=== PATIENT | female | born 1960 | race Caucasian/White ===

== ENCOUNTER → 2016-11-10 | Outpatient (CLI) | payer OTHER ==
[~2016-11-10] MED LIST: CALC-354 PO; METHPOW7 PO; METO-217 PO; METO25TA3 PO; MISCCAP80 PO
[2016-11-10 10:51] LABS: BASO % 0.5 %; BASO ABS # 0.03 K/uL (0-0.2); COMPLETE YES; EOS % 1.3 %; HEMATOCRIT 40.7 % (37-47); IG% 0.2 %; LYMPH % 29.7 %; LYMPH ABS # 1.84 K/uL (1.2-3.4); MEAN CELL VOLUME 89.3 fL (80-100); MEAN CORPUSCULAR HEMOGLOBIN 30.5 pg (25-34); MEAN CORPUSCULAR HGB CONC 34.2 g/dl (32-36); MEAN PLATELET VOLUME 9.1 fL (7.4-10.4); MONO % 8.6 %; NEUT % 59.7 %; PLATELET COUNT 280 K/uL (130-400); RED BLOOD COUNT 4.56 M/uL (4.2-5.4); WHITE BLOOD COUNT 6.19 K/uL (4.8-10.8)
[2016-11-10 11:02] LABS: ALT/SGPT 24 U/L (12-78); BLOOD UREA NITROGEN 11 mg/dl (7-18); BUN/CREATININE RATIO 15.3 (10-20); CALCIUM 9.3 mg/dl (8.5-10.1); CARBON DIOXIDE 30 mmol/L (21-32); CHLORIDE 106 mmol/L (98-107); CHOLESTEROL 164 mg/dl (0-200); CREATININE 0.74 mg/dl (0.60-1.20); GLUCOSE 84 mg/dl (70-99); MAGNESIUM 2.2 mg/dl (1.8-2.4); POTASSIUM 4.1 mmol/L (3.5-5.1); SODIUM 142 mmol/L (136-145); TRIGLYCERIDES 125 mg/dl (0-150); VERY LOW DENSITY LIPOPROT CALC 25 mg/dl
[2016-11-10 11:13] LABS: ALKALINE PHOSPHATASE 63 U/L (45-117); AST/SGOT 24 U/L (15-37); CHOLESTEROL/HDL RATIO 3.3; HDL CHOLESTEROL 50 mg/dl; LDL CHOLESTEROL CALCULATED 89 mg/dl
== END | disposition home or self-care (01) ==
LOC: C.LABBC 08:46
PROVIDERS: ATTEND Family Medicine
DX: Z79.899 Other long term (current) drug therapy (principal); R00.0 Tachycardia, unspecified; I10 Essential (primary) hypertension; E55.9 Vitamin D deficiency, unspecified

== ENCOUNTER → 2017-03-19 | Outpatient (CLI) | payer OTHER ==
--- NOTE | 2017-03-19 15:53 | MAMMOGRAPHY REPORT ---
BILATERAL DIGITAL SCREENING MAMMOGRAM TOMOSYNTHESIS WITH CAD: 03/19/2017 TECHNIQUE: Breast tomosynthesis in addition to standard 2D mammography was performed. Current study was also evaluated with a Computer Aided Detection (CAD) system. COMPARISON: Comparison is made to exams dated: 02/19/2016 mammogram, 07/12/2013 mammogram, 02/24/2012 mammogram, and 02/11/2011 mammogram. BREAST COMPOSITION: The tissue of both breasts is heterogeneously dense, which may obscure small ma sses. FINDINGS: No suspicious masses, calcifications, or areas of architectural distortion are noted in e ither breast. There has been no significant interval change compared to prior exams. IMPRESSION: ACR BI-RADS CATEGORY 1: NEGATIVE There is no mammographic evidence of malignancy. A 1 year screening mammogram is recommended. The p atient will receive written notification of the results. Approximately 10% of breast cancers are not detected with mammography. A negative mammographic repor t should not delay biopsy if a clinically suggestive mass is present. Elisa Louis M.D. ah/:03/19/2017 14:04:28 Pharmacovigilance Safety Expert: Jennifer HUTTON(R)(M), [facility] letter sent: Normal 1/2 BI-RADS Code: ACR BI-RADS Category 1: Negative
== END | disposition home or self-care (01) ==
LOC: C.MAMM 13:37
PROVIDERS: ATTEND Obstetrics & Gynecology
DX: Z12.31 Encounter for screening mammogram for malignant neoplasm of breast (principal)

== ENCOUNTER 2020-04-29 15:00 | Observation (INO) ==
[2020-04-29] MEDS ORDERED: fentaNYL citrate 100 MCG/2 ML VIAL IV STA (15:13)
[2020-04-29] MEDS ORDERED: ONDANSETRON INJ 2 MG/ML 2 ML VIAL IV STA (15:13)
[2020-04-29] MEDS ORDERED: ONDANSETRON INJ 2 MG/ML 2 ML VIAL ONE ×2 (15:13→20:15)
[2020-04-29] MEDS ORDERED: SODIUM CHLORIDE 0.9% 1000ML 500 ML IV ONE (15:14)
[2020-04-29] MEDS ORDERED: fentaNYL citrate 100 MCG/2 ML VIAL ONE ×3 (15:14→19:04)
[2020-04-29 15:21] LABS: Basophils # (auto) 0.02 K/uL (0-0.2); Basophils % (auto) 0.3 %; Eosinophils # (auto) 0.17 K/uL (0-0.5); Eosinophils % (auto) 2.1 %; Hematocrit (blood only) 41.7 % (37-47); Hemoglobin 13.7 g/dL (12.0-16.0); Immature Granulocytes # (auto) 0.03 K/uL (0.00-0.02); Immature Granulocytes % (auto) 0.4 %; Lymphocytes # (auto) 2.11 K/uL (1.2-3.4); Lymphocytes % (auto) 26.5 %; Mean Corpuscular Hemoglobin 30.6 pg (25-34); Mean Corpuscular Hgb Conc 32.9 g/dL (32-36); Mean Corpuscular Volume 93.1 fL (80-100); Mean Platelet Volume 9.2 fL (7.4-10.4); Monocytes # (auto) 0.47 K/uL (0.11-0.59); Monocytes % (auto) 5.9 %; Neutrophils # (auto) 5.15 K/uL (1.4-6.5); Neutrophils % (auto) 64.8 %; Platelet Count 301 K/uL (130-400); RDW Coefficient of Variation 12.2 % (11.5-14.5); RDW Standard Deviation 41.1 fL (36.4-46.3); Red Blood Count 4.48 M/uL (4.2-5.4); White Blood Count 7.95 K/uL (4.8-10.8)
[2020-04-29] MEDS ORDERED: LORazepam 0.5 MG/1 ML VIAL IV STA (15:21)
[2020-04-29 15:39] LABS: Albumin Level 4.1 gm/dl (3.4-5.0); BUN Creatinine Ratio 17.1 (10-20); Calcium 9.6 mg/dl (8.5-10.1); Est GFR (African American) 65.8; Est GFR (Non-African American) 56.8; Potassium 3.8 mmol/L (3.5-5.1)
[2020-04-29 15:42] LABS: Albumin Globulin Ratio 1.1 (0.9-2); Bilirubin,Total 0.4 mg/dl (0.2-1); Globulin 3.8 gm/dl (2.5-4.0); Total Protein 7.9 gm/dl (6.4-8.2)
--- NOTE | 2020-04-29 15:51 | XRay Report ---
XR ankle RT min 3V routine CLINICAL HISTORY: Post reduction. Right ankle fracture/dislocation. COMPARISON STUDY: Right ankle 04/21/2020. FINDINGS: Improved anatomic alignment status post reduction of the right ankle trimalleolar fracture/ dislocation. Distal fibula demonstrates up to 4 mm of displacement. There is mild widening of the ank le mortise. Diffuse soft tissue swelling. Overlying splint material obscures fine bony detail. No dis location at this time. IMPRESSION: Improved anatomic alignment status post reduction of the right ankle trimalleolar fractu re with mild widening of the ankle mortise remaining. ACT 112: Negative or not required by law. Electronically signed by: Jack Barnes M.D. 04/29/2020 3:49 PM
--- NOTE | 2020-04-29 16:00 | History & Physical Report ---
Date of Service April 29, 2020 Assessment & Plan (1) Bimalleolar ankle fracture: Her ankle was reduced in the emergency room. This is an unstable fracture that will need operative fixation. She would like to proceed with surgery tonight. I think that is reasonable. She is currently on the operating room schedule for an ORIF of her right ankle this evening. We will likely keep her overnight in the hospital then and discharge her to home tomorrow morning. She understands the risks, benefits, and alternatives to procedures like to proceed. Consents were signed. Present on Admission?: Yes History of Present Illness Chief Complaint: Displaced right bimalleolar ankle fracture Primary Care Provider: Mayda Wong MD Ann-Marie is a pleasant 59-year-old female who was walking her dogs earlier today. She stepped awkwardly in a hole and fell to the ground. She sustained a twisting injury to her right ankle. There was a significant deformity. She came to the emergency room and radiographs demonstrated a displaced right bimalleolar ankle fracture with posterior subluxation of the talus. It was reduced in the emergency room. After discussions at bedside, she elected to proceed with an open reduction internal fixation later this evening. She is being admitted to the hospital for the surgical procedure on her ankle as well as an overnight stay. Allergies Allergy/AdvReac Type Severity Reaction Status Date / Time Penicillins Allergy Unknown HIVES Verified 11/16/19 15:56 Home Medications Home Medications Medication Instructions Recorded Confirmed Type cholecalciferol (vitamin D3) 50 50 mcg PO DAILY 11/16/19 11/16/19 History mcg (2,000 unit) capsule multivitamin 1 tab PO DAILY 11/16/19 11/16/19 History prednisone 20 mg tablet 20 mg PO DAILY #5 tab 11/16/19 11/16/19 Rx metoprolol succinate 100 mg 50 mg PO Q12H 90 Days #90 tab 01/23/20 Rx tablet,extended release 24 hr Past Med/Surg History Surgical History H/O: hysterectomy Family History Denies family history of Ovarian cancer Prostate cancer Myocardial infarction Breast cancer Colorectal cancer Social History Preferred Language: Ukrainian Communication Ability: Effective Visual Impairment: No Limitations Hearing Ability: Normal marital status: Current Living Situation: Spouse current occupational status: employed Feels Safe at Home: Yes Smoking Status: Never smoker Hx Alcohol Use: Yes Alcohol type: wine Alcohol Intake Frequency: Daily Hx Substance Use: No Childhood Exposure to Second-Hand Smoke: No Dental Care, Regularly: Yes Physical Activity Frequency: Daily Seatbelt Use: always Sunscreen Use: Yes Review of Systems Review of Systems: All systems reviewed & are unremarkable except as noted in HPI & below Physical Exam Constitutional: WD/WN, vitals as above Eyes: PERRL, conjunctivae normal, anicteric sclerae ENMT: external ear and nose normal, oropharynx normal Neck: trachea midline, no thyromegaly Respiratory: normal respiratory effort Cardiovascular: RRR, no murmur, no edema Gastrointestinal (Abdomen): normal bowel sounds, soft, nontender, no hepatosplenomegaly Musculoskeletal: On physical examination of the right ankle, there is a trauma splint in place. She is a little bit of motion of her toes. Sensation is intact. Her right leg is elevated. She has full range of motion of her knee. She has no other tenderness to palpation on her remaining long bones or bony prominences. Psychiatric: A+Ox3, euthymic affect Results & Data Results & Data ([facility]) Vital Signs (Past 12 Hours) Vital Signs Temp Pulse Pulse Resp BP BP Pulse Ox 04/29/20 15:45 86 18 147/77 H 97 04/29/20 15:13 95 04/29/20 15:07 37.1 C 95 H 18 160/103 H 99 Diagnostic Findings X-rays of the right ankle do show a displaced bimalleolar right ankle fracture. There is an oblique fracture of the fibula as well as a medial malleolus fragment. PG Care Time/CCT Total # of Minutes Spent Total Time Spent with Patient: Total time spent is greater than 50% in coordination of care (as documented) at patient's floor/unit and/or counseling patient: Coding Level of Care Code 72054 Initial Inpt Care Lvl 3 Diagnoses Bimalleolar ankle fracture S82.843A
--- NOTE | 2020-04-29 16:06 | XRay Report ---
XR ankle RT 2V CLINICAL HISTORY: dislocated/ ? fracture. Right ankle pain. COMPARISON STUDY: None. FINDINGS: Trimalleolar ankle fracture with posterior dislocation of the talus in relation to the dist al tibia. Diffuse soft tissue swelling. The medial malleolus demonstrating up to 1 cm medial displace ment. IMPRESSION: Trimalleolar right ankle fracture/dislocation. ACT 112: Negative or not required by law. Electronically signed by: Jack Barnes M.D. 04/29/2020 4:05 PM
[2020-04-29 16:15] LABS: Partial Thromboplastin Ratio 0.9; Partial Thromboplastin Time 25.9 Seconds (21.0-31.0); Prothrombin Time 10.2 Seconds (9.0-12.0)
--- NOTE | 2020-04-29 17:13 | XRay Report ---
XR chest 2V PA/lateral HISTORY: Right ankle fracture. pre-op COMPARISON: None. FINDINGS: The lungs are clear. Apparent enlargement of the cardiac silhouette is secondary to the pec tus excavatum deformity. No pleural effusions. No pneumothorax. The trachea is midline and patent. IMPRESSION: No acute process. ACT 112: Negative or not required by law. Electronically signed by: Jack Barnes M.D. 04/29/2020 5:11 PM
[2020-04-29] MEDS ORDERED: CEFAZOLIN 1000MG 1,000 MG/7.5 ML SYR IV SCH (18:00)
--- NOTE | 2020-04-29 18:02 | Anesthesiology Consultation ---
Date of Service April 29, 2020 Assessment & Plan ASA ASA2 Proposed Anesthesia Anesthesia Type: General Regional Regional Laterality: Right Site: Popliteal and Adductor Canal Risk / Benefits Reviewed With: PT / POA / Parent / Guardian, Accepts Plan and Informed Consent Obtained History Surgery Operation Date: 04/29/20 19:00 Proposed Procedures p Open Reduction Internal Fixation Ankle(Right) - Roscoe Randall, DO Height/Weight Height: 5 ft 6 in Weight: 63.9 kg Allergies Allergy/AdvReac Type Severity Reaction Status Date / Time Penicillins Allergy Unknown HIVES Verified 04/29/20 16:12 Medications Home Medications Medication Instructions Recorded Confirmed Last Taken cholecalciferol (vitamin D3) 50 50 mcg PO DAILY 11/16/19 04/29/20 Unknown mcg (2,000 unit) capsule metoprolol succinate 100 mg 50 mg PO Q12H 90 Days #90 tab 01/23/20 04/29/20 Unknown tablet,extended release 24 hr elham [id number]-[id number]-bor 1 tab PO DAILY 04/29/20 04/29/20 Unknown lactobacillus combination no.4 3,000 mmu cells PO DAILY 04/29/20 04/29/20 Unknown [Probiotic] vitamin B complex [Super B-50 1 cap PO DAILY 04/29/20 04/29/20 Unknown Complex] NPO Date Last Intake of Fluids: 04/29/20 Time Last Intake of Fluids: 12:30 Date Last Intake of Solids: 04/29/20 Time Last Intake of Solids: 12:30 Exercise / Class Metabolic Activity 1 > 8 Run/Swim/Ski/Tennis Past Family History Family History Denies family history of Ovarian cancer Prostate cancer Myocardial infarction Breast cancer Colorectal cancer Past Surgical History Surgical History H/O: hysterectomy Past Anesthesia History No Hx of Anesthesia Complications and No Family Hx of Anesthesia Complications History of PONV No Hx of Motion Sickness and History of PONV Social History Smoking Status: Never smoker Hx Alcohol Use: Yes Alcohol type: wine Hx Substance Use: No Review of Systems denies fever/cough/ colds/ chest pain/ SOB/ REED Constitutional: no fever and no chills Respiratory: no cough and no dyspnea denies REED Cardiovascular: no chest pain and no dyspnea on exertion Physical Exam Vital Signs Last Vital Signs Temp 36.9 C 04/29/20 17:49 Pulse 80 04/29/20 17:49 Resp 17 04/29/20 17:49 BP 137/80 04/29/20 17:49 Pulse Ox 99 04/29/20 17:49 ENMT Mouth: no TMJ abnormality and no dentition abnormality Thyromental Distance: > or= 3.5 Finger Breadths Mallampati Class: II Neck neck extension not limited Respiratory normal respiratory effort; no respiratory distress Auscultation: lungs clear to auscultation bilaterally Cardiovascular Rate/Rhythm: regular rate and regular rhythm Neurologic moves all extremities Psychiatric Orientation: alert and oriented x 3 Testing Laboratory Results 04/29/20 15:12 04/29/20 15:12 PT 10.2 Seconds (9.0-12.0) 04/29/20 15:12 INR 1.0 (0.9-1.1) 04/29/20 15:12 APTT 25.9 Seconds (21.0-31.0) 04/29/20 15:12 Urine Color Yellow 04/29/20 17:50 Urine Appearance Clear (Clear) 04/29/20 17:50 Urine pH 7.0 (4.5-7.5) 04/29/20 17:50 Ur Specific [place] 1.015 (1.000-1.030) 04/29/20 17:50 Urine Protein Negative (Negative) 04/29/20 17:50 Urine Glucose (UA) Negative (Negative) 04/29/20 17:50 Urine Ketones Negative (Negative) 04/29/20 17:50 Urine Nitrite Negative (Negative) 04/29/20 17:50 Ur Leukocyte Esterase Trace (Negative) H 04/29/20 17:50 Urine WBC (Auto) 1-5 /hpf (0-5) 04/29/20 17:50 Urine RBC (Auto) 0-4 /hpf (0-4) 04/29/20 17:50 U Hyaline Cast (Auto) 1-5 /lpf (0-5) 04/29/20 17:50 U Epithel Cells (Auto) 10-20 /lpf (0-5) H 04/29/20 17:50 Urine Bacteria (Auto) Negative (Negative) 04/29/20 17:50 Electrocardiogram Date: 04/29/20 Findings: + NSR @ (74) Normal sinus rhythm Normal ECG No previous ECGs available Chest X-Ray Date: 04/29/20 XR chest 2V PA/lateral HISTORY: Right ankle fracture. pre-op COMPARISON: None. FINDINGS: The lungs are clear. Apparent enlargement of the cardiac silhouette is secondary to the pectus excavatum deformity. No pleural effusions. No pneumothorax. The trachea is midline and patent. IMPRESSION: No acute process.
[2020-04-29] MEDS ORDERED: ROPIVACAINE 0.5% 5 MG/ML 30 ML VIAL ONE (18:11)
[2020-04-29 18:19] LABS: Appearance Urine Clear (Clear); Bacteria Urine Automated Negative (Negative); Bilirubin Urine Negative (Negative); Blood Urine Negative (Negative); Color Urine Yellow; Glucose Urine UA Negative (Negative); Ketones Urine Negative (Negative); Leukocyte Esterase Urine Trace (Negative); Nitrite Urine Negative (Negative); Protein Urine Negative (Negative); RBC Urine Automated 0-4 /hpf (0-4); Specific Gravity Urine 1.015 (1.000-1.030); Urobilinogen Urine Negative (Negative)
[2020-04-29] MEDS ORDERED: MIDAZOLAM HCL 1 MG/ML 2ML VIAL ONE (19:04)
[2020-04-29] MEDS ORDERED: SCOPOLAMINE 1.5 MG TDSY TD ONE (19:09)
[2020-04-29] MEDS ORDERED: ATROPINE SULFATE 0.1 MG/ML 10ML SYR IV PRN (19:21)
[2020-04-29] MEDS ORDERED: ePHEDrine sulfate 50 MG/ML AMP IV PRN (19:21)
[2020-04-29] MEDS ORDERED: ONDANSETRON INJ 2 MG/ML 2 ML VIAL IV PRN (19:21)
[2020-04-29] MEDS ORDERED: fentaNYL citrate 100 MCG/2 ML VIAL IV PRN (19:21)
[2020-04-29] MEDS ORDERED: HYDROmorphone INJ 2 MG/ML SYR/VIAL IV PRN (19:21)
--- NOTE | 2020-04-29 19:22 | Emergency Department Note ---
History of Present Illness General Chief complaint: Ankle Pain Stated complaint: FALL - RT ANKLE INJURY Time Seen by Provider: 04/29/20 15:09 Source: patient Mode of arrival: ambulatory Limitations: no limitations History of Present Illness Provider complaint: Right ankle injury Maximum Pain Intensity: 2 This patient is a 59-year-old female who presents emergency department with complaints of a right ankle injury. Patient states she was walking her dog in a field when she stepped in a hole, injuring the ankle. She denies any other injuries. She denies hitting her head or losing consciousness. 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 She denies any significant past medical problems but states she does take metoprolol. Home Medications Home Medications Medication Instructions Recorded Confirmed Type cholecalciferol (vitamin D3) 50 50 mcg PO DAILY 11/16/19 04/29/20 History mcg (2,000 unit) capsule metoprolol succinate 100 mg 50 mg PO Q12H 90 Days #90 tab 01/23/20 04/29/20 Rx tablet,extended release 24 hr Probiotic 3,000 mmu cells PO DAILY 04/29/20 04/29/20 History elham [id number]-[id number]-bor 1 tab PO DAILY 04/29/20 04/29/20 History vitamin B complex [Super B-50 1 cap PO DAILY 04/29/20 04/29/20 History Complex] aspirin 81 mg PO BID 42 Days #0 tab 04/30/20 Rx oxycodone 5 mg PO Q4H PRN #30 tab 04/30/20 Rx Allergies Allergy/AdvReac Type Severity Reaction Status Date / Time Penicillins Allergy Unknown HIVES Verified 04/29/20 16:12 Past Med/Surg History Surgical History H/O: hysterectomy Family History Denies family history of Ovarian cancer Prostate cancer Myocardial infarction Breast cancer Colorectal cancer Social History Preferred Language: Latvian Communication Ability: Effective Visual Impairment: No Limitations Hearing Ability: Normal [employer]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 and A total of 10 systems reviewed and were otherwise negative Physical Exam Vital Signs Vital Signs - 24 hr 04/29/20 15:07 04/29/20 15:13 04/29/20 15:45 Temperature 37.1 C Temperature Source Oral Pulse Rate 95 H Pulse Rate [Apical] 86 Pulse Rhythm [Apical] Regular Respiratory Rate 18 18 Respiratory Effort / Characteristics Non-Labored Non-Labored Respiratory Depth Normal Normal Blood Pressure 160/103 H Blood Pressure [Right Arm] 147/77 H Blood Pressure Mean 122 Blood Pressure Mean [Right Arm] 100 Blood Pressure Position [Right Arm] Lying Pulse Oximetry 99 95 97 Oxygen Delivery Method Room Air Room Air Room Air Sepsis Recent Fever Within 48 Hours No Sepsis Action Taken by Nursing No Action Required 04/29/20 16:08 04/29/20 16:30 Temperature Temperature Source Pulse Rate 83 83 Pulse Rate [Apical] Pulse Rhythm [Apical] Respiratory Rate 20 Respiratory Effort / Characteristics Respiratory Depth Blood Pressure 121/82 134/105 H Blood Pressure [Right Arm] Blood Pressure Mean 88 111 Blood Pressure Mean [Right Arm] Blood Pressure Position [Right Arm] Pulse Oximetry 96 96 Oxygen Delivery Method Sepsis Recent Fever Within 48 Hours Sepsis Action Taken by Nursing Vital signs reviewed. General: Well-appearing 59 yo female, in no significant distress. HEENT: No scleral icterus, PERRLA, neck supple. Atraumatic. Cardiovascular: Regular rate and rhythm, no extra sounds. Pulmonary: Clear to auscultation bilaterally, normal work of breathing. Abdomen: Soft, nontender, nondistended, positive bowel sounds. Musculoskeletal: Right ankle deformity with external rotation of the foot. There is skin tenting but no open skin appreciated. Distal pulses and sensation intact. Neurologic: Patient awake alert and oriented x 3 Skin: Warm, dry, tenting over the deformed ankle on the right as above. Procedures Orthopedic Fracture Reduction Fracture #1: Time Out Performed: Yes Side: right Fracture Reduction Location: other (Ankle) Analgesia: other (Dilaudid) Technique: direct manipulation Post Reduction X-rays Demonstrate: acceptable reduction Post-reduction neuro exam: intact Post-reduction vascular exam: intact Splint Applied: Yes Patient Tolerated Procedure: well Additional Comments: Posterior and sugar tong splint applied under my direction. Course Administered Medications Discontinued Medications Aspirin (Ecotrin Ectab) 81 mg PO BID NAHEED Stop: 05/30/20 08:59 Last Admin: 04/30/20 07:27 Dose: 81 mg Documented by: [id number] Bupivacaine HCl/Epinephrine Bitart (Bupivacaine 0.25%-Epi 1:[id number]) Confirm Administered Dose 30 ml .ROUTE .STK-MED ONE Stop: 04/29/20 19:53 Last Admin: 04/29/20 20:58 Dose: 30 ml Documented by: [id number] Docusate Sodium (Colace) 100 mg PO BID NAHEED Stop: 05/30/20 08:59 Last Admin: 04/30/20 07:27 Dose: 100 mg Documented by: [id number] Fentanyl Citrate (Fentanyl Citrate) Confirm Administered Dose 100 mcg .ROUTE .STK-MED ONE Stop: 04/29/20 15:15 Last Admin: 04/29/20 15:21 Dose: Not Given Documented by: [id number] Fentanyl Citrate (Fentanyl Citrate) 100 mcg IV NOW STA Stop: 04/29/20 15:14 Last Admin: 04/29/20 15:20 Dose: 100 mcg Documented by: [id number] Fentanyl Citrate (Fentanyl Citrate) Confirm Administered Dose 100 mcg .ROUTE .STK-MED ONE Stop: 04/29/20 15:16 Last Increment: 04/29/20 15:32 Dose: 50 mcg Documented by: [id number] Sodium Chloride (Nss 1000ml) 500 mls @ 999 mls/hr IV .Q31M ONE Stop: 04/29/20 15:44 Last Infusion: 04/29/20 17:17 Dose: 0 mls/hr Documented by: [id number] Admin: 04/29/20 15:20 Dose: 999 mls/hr Documented by: [id number] Lorazepam (Ativan) 0.5 mg in 1 mls @ 1 mls/min IV NOW STA Stop: 04/29/20 15:22 Last Admin: 04/29/20 15:26 Dose: 1 mls/min Documented by: [id number] Cefazolin Sodium (Ancef 1000mg) 1,000 mg in 7.5 mls @ 2.5 mls/min IV PREOP NAHEED; Protocol Stop: 04/29/20 18:02 Last Admin: 04/29/20 20:58 Dose: 2.5 mls/min Documented by: [id number] Cefazolin Sodium (Ancef 1000mg) 1,000 mg in 7.5 mls @ 2.5 mls/min IV Q8H NAHEED; Protocol Stop: 04/30/20 12:02 Last Admin: 04/30/20 11:23 Dose: Not Given Documented by: [id number] Admin: 04/30/20 05:06 Dose: 2.5 mls/min Documented by: [id number] Sodium Chloride (Nss 1000ml) 1,000 mls @ 100 mls/hr IV .Q10H NAHEED Stop: 04/30/20 06:00 Last Infusion: 04/30/20 05:16 Dose: 0 mls/hr Documented by: [id number] Admin: 04/29/20 22:44 Dose: 100 mls/hr Documented by: [id number] Ketorolac Tromethamine (Toradol) 30 mg IV Q6H NAHEED Stop: 04/30/20 16:31 Last Admin: 04/30/20 09:51 Dose: 30 mg Documented by: [id number] Admin: 04/30/20 05:06 Dose: 30 mg Documented by: [id number] Admin: 04/29/20 22:46 Dose: 30 mg Documented by: [id number] Multivitamins (Multivitamin Tab) 1 tab PO QAM NAHEED Stop: 05/30/20 08:59 Last Admin: 04/30/20 07:27 Dose: 1 tab Documented by: [id number] Ondansetron HCl (Zofran) Confirm Administered Dose 4 mg .ROUTE .STK-MED ONE Stop: 04/29/20 15:14 Last Admin: 04/29/20 15:20 Dose: Not Given Documented by: [id number] Ondansetron HCl (Zofran) 4 mg IV NOW STA Stop: 04/29/20 15:14 Last Admin: 04/29/20 15:20 Dose: 4 mg Documented by: [id number] Medical Decision Making Differential Diagnosis Differential diagnosis: Etiologies such as fracture, dislocation, neurovascular compromise, compartment syndrome, soft tissue injury, as well as others were entertained. Home Medications Current Medication List: was personally reviewed by me Laboratory Data Attestation: I reviewed the patient's lab results. Result diagrams: 04/29/20 15:12 04/29/20 15:12 Lab Results 04/29/20 04/29/20 04/29/20 Range/Units 15:12 15:12 15:12 WBC 7.95 (4.8-10.8) K/uL RBC 4.48 (4.2-5.4) M/uL Hgb 13.7 (12.0-16.0) g/dL Hct 41.7 (37-47) % MCV 93.1 (80-100) fL MCH 30.6 (25-34) pg MCHC 32.9 (32-36) g/dL RDW Std Deviation 41.1 (36.4-46.3) fL RDW Coeff of Adolph 12.2 (11.5-14.5) % Plt Count 301 (130-400) K/uL MPV 9.2 (7.4-10.4) fL Immature Gran % (Auto) 0.4 % Neut % (Auto) 64.8 % Lymph % (Auto) 26.5 % Dunn % (Auto) 5.9 % Eos % (Auto) 2.1 % Baso % (Auto) 0.3 % Neut # (Auto) 5.15 (1.4-6.5) K/uL Lymph # (Auto) 2.11 (1.2-3.4) K/uL Dunn # (Auto) 0.47 (0.11-0.59) K/uL Eos # (Auto) 0.17 (0-0.5) K/uL Baso # (Auto) 0.02 (0-0.2) K/uL Immature Gran # (Auto) 0.03 H (0.00-0.02) K/uL PT 10.2 (9.0-12.0) Seconds INR 1.0 (0.9-1.1) APTT 25.9 (21.0-31.0) Seconds PTT Ratio 0.9 Sodium 138 (136-145) mmol/L Potassium 3.8 (3.5-5.1) mmol/L Chloride 103 (98-107) mmol/L Carbon Dioxide 26 (21-32) mmol/L Anion Gap 9.0 (3-11) BUN 18 (7-18) mg/dl Creatinine 1.07 (0.6-1.2) mg/dl Est Cr Clr Drug Dosing 53.0 ml/min Est GFR ( Amer) 65.8 Est GFR (Non-Af Amer) 56.8 BUN/Creatinine Ratio 17.1 (10-20) Glucose 143 H (70-99) mg/dl Calcium 9.6 (8.5-10.1) mg/dl Total Bilirubin 0.4 (0.2-1) mg/dl AST 19 (15-37) U/L ALT 25 (12-78) U/L Alkaline Phosphatase 79 (45-117) U/L Total Protein 7.9 (6.4-8.2) gm/dl Albumin 4.1 (3.4-5.0) gm/dl Globulin 3.8 (2.5-4.0) gm/dl Albumin/Globulin Ratio 1.1 (0.9-2) Imaging Data Radiologist's Impression: XR ankle RT 2V CLINICAL HISTORY: dislocated/ ? fracture. Right ankle pain. COMPARISON STUDY: None. FINDINGS: Trimalleolar ankle fracture with posterior dislocation of the talus in relation to the distal tibia. Diffuse soft tissue swelling. The medial malleolus demonstrating up to 1 cm medial displacement. IMPRESSION: Trimalleolar right ankle fracture/dislocation. ACT 112: Negative or not required by law. Electronically signed by: Jack Barnes M.D. 04/29/2020 4:05 PM Dictated: 04/29/20 1529 Transcribed: 04/29/20 1536 XR chest 2V PA/lateral HISTORY: Right ankle fracture. pre-op COMPARISON: None. FINDINGS: The lungs are clear. Apparent enlargement of the cardiac silhouette is secondary to the pectus excavatum deformity. No pleural effusions. No pneumothorax. The trachea is midline and patent. IMPRESSION: No acute process. ACT 112: Negative or not required by law. Electronically signed by: Jack Barnes M.D. 04/29/2020 5:11 PM Dictated: 04/29/20 1710 Transcribed: 04/29/20 1710 XR ankle RT min 3V routine CLINICAL HISTORY: Post reduction. Right ankle fracture/dislocation. COMPARISON STUDY: Right ankle 04/21/2020. FINDINGS: Improved anatomic alignment status post reduction of the right ankle trimalleolar fracture/dislocation. Distal fibula demonstrates up to 4 mm of dis placement. There is mild widening of the ankle mortise. Diffuse soft tissue swelling. Overlying splint material obscures fine bony detail. No dislocation at this time. IMPRESSION: Improved anatomic alignment status post reduction of the right ankle trimalleolar fracture with mild widening of the ankle mortise remaining. ACT 112: Negative or not required by law. Electronically signed by: Jack Barnes M.D. 04/29/2020 3:49 PM Dictated: 04/29/20 154 Transcribed: 04/29/201547 ECG Data Indication: + other (preop) Rate (beats per minute): 74 Rhythm: + normal sinus ECG Intervals/blocks: + Normal QRS and + Normal QT-c ECG [place]: + Normal ECG ST segments: + Normal ST segments ECG Findings: no PACs and no PVCs Blood Pressure Blood Pressure Findings: Elevated blood pressure Blood Pressure Disposition: elevated BP felt to be situational MDM Narrative This pt was evaluated and appeared to be in some discomfort, but no distress. An order for cardiac monitoring was placed and the pt was found to be in a NSR at 74 bpm. IVF were initiated and pt was medicated with IV fentanyl and zofran. Pt was anxious regarding the reduction, therefore she was given 0.5 mg IV ativan. XR confirms the trimalleolar fracture and dislocation. Skin is closed. Pt was then given additional fentanyl, a quick reduction was performed and a splint applied. A posterior and sugar tong splint was applied under my direction. Dr. Randall of orthopaedics was in the department for another consult . He was informed of the pt's situation. He evaluated her and advised surgery. Pt was kept NPO and preparations for the OR were made. Pt was agreeable with the plan. Impression & Plan Closed trimalleolar fracture of ankle Discharge Plan Visit Data *Final* Discharge Date/Time: 04/29/20 17:22 Chief Complaint: Ankle Pain Stated Complaint: FALL - RT ANKLE INJURY ED Provider: Shelly Giraldo Discharge Problem: Closed trimalleolar fracture of ankle Patient Disposition: Admitted As Inpatient Discharge Instructions Interventions: ED Discharge Assessment Last Done: 04/29/20 17:22 Discharge Problem: Closed trimalleolar fracture of ankle Qualifiers: Encounter type: initial encounter Laterality: right Qualified Code(s): S82.851A - Displaced trimalleolar fracture of right lower leg, initial encounter for closed fracture
[2020-04-29] MEDS ORDERED: BUPIVACAINE/EPINEPHRINE 0.25% 1:200,000 30 ML VIAL ONE (19:52)
[2020-04-29] MEDS ORDERED: PROPOFOL IV EMULSION 10 MG/ML 20 ML VIAL IV ONE (20:15)
[2020-04-29] MEDS ORDERED: DEXAMETHASONE SOD INJ 4 MG/ML VIAL ONE (20:15)
[2020-04-29] MEDS ORDERED: SUCCINYLCHOLINE CHLORIDE 20 MG/ML 10 ML VIAL IV ONE (20:15)
--- NOTE | 2020-04-29 20:41 | Electrocardiogram Report ---
Test Reason : Blood Pressure : / mmHG Vent. Rate : 074 BPM Atrial Rate : 074 BPM P-R Int : 148 ms QRS Dur : 086 ms QT Int : 396 ms P-R-T Axes : 053 034 028 degrees QTc Int : 439 ms Normal sinus rhythm Normal ECG No previous ECGs available Confirmed by Fabian Glez ([id number]) on 04/29/2020 8:40:44 PM Referred By: REFERRED SELF Confirmed By:Krzysztof Glez
--- NOTE | 2020-04-29 21:12 | Operative Report ---
PG Post Operative Report Pre & Post Diagnosis Operation Date: 04/29/20 19:00 Pre-Op Diagnosis: Bimalleolar ankle fracture Post-Op Diagnosis: Bimalleolar ankle fracture I identified the patient and participated in the time-out.: Yes Procedure Operation Date: 04/29/20 19:00 Actual Procedures p Open Reduction Internal Fixation Right Bimalleolar Ankle Fracture(Right) - Roscoe Randall DO Surgeon Roscoe Randall DO Director Of Teacher Education Amado Gore PAC Estimated Blood Loss 10 Findings Consistent with Post-Op Diagnosis Specimens None Complications none Disposition Disposition: Recovery Room Indications Ann-Marie is a pleasant 59-year-old female who was walking her dogs earlier today when she stepped awkwardly and injured her right ankle. She came to the emergency room and the radiographs demonstrated a displaced bimalleolar ankle fracture. After discussions at bedside, she elected proceed with an open reduction internal fixation of the right ankle. Description of Procedure On April 29, 2020 Ann-Marie was seen in the preoperative holding area where the operative extremity was identified and signed. She was given a preoperative antibiotic and a popliteal block. She was taken back to the operating room and laid on the table in the supine position. She was put under general anesthesia. The right ankle was prepped and draped in sterile fashion. A timeout was done. The patient and the operative extremity was properly identified. The medial side was addressed first. A curvilinear incision was made over the medial malleolus fracture. Dissection was taken down through the fascia. The fracture was then reduced with a reduction clamp. 2 K wires were then placed perpendicular to the fracture fragment. Fluoroscopy was used to ensure that the pins were out of the joint. Two 40 mm long threaded 4.0 cannulated screws were placed.Fluoroscopic images showed anatomic reduction of the medial malleolus fragment. Attention was turned to the lateral side. A longitudinal incision was made directly over the fracture site. Dissection was taken down through the fascia with care not to disrupt the neurovascular structures. The fracture was reduced with a clamp. The bone was very small and then did not feel a lag screw would be helpful. I placed a Synthes 8 hole one third tubular locking plate. A locking screw was placed both proximally and distally with the fracture reduced. Fluoroscopic images showed anatomic alignment of the fracture and the plate. Locking screws were then placed both proximally and distally. Final fluoroscopic images showed anatomic alignment. Stress views showed no opening of the syndesmosis. The wound was then irrigated. Tourniquet was deflated and hemostasis was obtained. The fascial layer laterally was closed with #0 Vicryl suture. Skin was then closed with 3-0 Vicryl and frankie. She was then placed in a trauma splint. She was then extubated and transferred to a hospital bed. She was taken to the postanesthesia care unit in stable condition. She tolerated the procedure well. Amado Gore PA-C, was present for the entire procedure. He was critical for patient positioning, prepping, draping, retraction exposure, wound closure and application of sterile dressing. I attest to the content of the Intraoperative Record and any orders documented therein. Any exceptions are noted below.
[2020-04-29] MEDS ORDERED: METOCLOPRAMIDE HCL INJ 5 MG/ML 2 ML VIAL IV PRN (22:12)
[2020-04-29] MEDS ORDERED: NALOXONE HCL 0.4 MG/1 ML VIAL/CARP IV PRN (22:12)
[2020-04-29] MEDS ORDERED: bisacodyL 10 MG SUPP PR PRN (22:12)
[2020-04-29] MEDS ORDERED: OXYCODONE HCL IR 5 MG TAB (IMMEDIATE RELEASE) PO PRN (22:12)
[2020-04-29] MEDS ORDERED: HYDROmorphone INJ 0.5 MG/0.5 ML SYR IV PRN (22:12)
[2020-04-29] MEDS ORDERED: SODIUM CHLORIDE 0.9% 1000ML 1,000 ML IV SCH (22:12)
[2020-04-29] MEDS ORDERED: MAGNESIUM HYDROXIDE SUSP 30 ML UDC PO PRN (22:12)
[2020-04-29] MEDS: KETOROLAC 30 MG/ML VIAL IV SCH (22:46)
[2020-04-30] MEDS: KETOROLAC 30 MG/ML VIAL IV SCH ×2 (05:06→09:51)
[2020-04-30] MEDS: CEFAZOLIN 1000MG 1,000 MG/7.5 ML SYR IV SCH ×2 (05:06→11:23)
--- NOTE | 2020-04-30 06:58 | Orthopedic Progress Note ---
Date of Service April 30, 2020 Assessment & Plan (1) Bimalleolar ankle fracture: Overall she is doing very well. She not having any pain in the right ankle at this time. She will be seen by physical therapy and Occupational Therapy today for ambulation and instructions on nonweightbearing on her right ankle. She will be on an aspirin twice a day for 6 weeks for DVT prophylaxis. She can be discharged home later today. She will follow-up with orthopedics in 2 weeks. Present on Admission?: Yes Vilma Jacobsen was seen and examined at bedside this morning. Overall she is doing very well. The nerve blocks are still working and she is not having any pain in the right ankle. She is happy with her progress and has no complaints. Physical Exam Musculoskeletal: On physical examination of the right ankle, the trauma splint is intact. Her right leg is elevated. She can wiggle her toes a little bit. She has no feeling in her foot yet. Results & Data ([facility]) Vital Signs (Past 12 Hours) Vital Signs Temp Pulse Pulse Resp BP Pulse Ox 04/30/20 05:03 36.7 C 66 16 128/86 96 04/30/20 01:00 37 C 74 18 144/72 H 98 04/30/20 00:01 36.8 C 78 16 120/72 96 04/29/20 22:40 36.6 C 84 18 147/83 H 99 04/29/20 22:00 36.6 C 91 H 20 148/83 H 95 04/29/20 21:55 36.5 C 88 14 119/82 100 04/29/20 21:50 89 14 135/88 98 04/29/20 21:40 94 H 14 135/87 97 04/29/20 21:34 36.6 C 95 H 18 147/83 H 100 PG Care Time/CCT Total # of Minutes Spent Total Time Spent with Patient: Total time spent is greater than 50% in coordination of care (as documented) at patient's floor/unit and/or counseling patient: Coding Level of Care Code None Diagnoses Bimalleolar ankle fracture S82.843A
--- NOTE | 2020-04-30 07:00 | Discharge Summary ---
Date of Service April 30, 2020 Admission HPI Per Admitting Provider Ann-Marie is a pleasant 59-year-old female who was walking her dogs earlier today. She stepped awkwardly in a hole and fell to the ground. She sustained a twisting injury to her right ankle. There was a significant deformity. She came to the emergency room and radiographs demonstrated a displaced right bimalleolar ankle fracture with posterior subluxation of the talus. It was reduced in the emergency room. After discussions at bedside, she elected to proceed with an open reduction internal fixation later this evening. She is being admitted to the hospital for the surgical procedure on her ankle as well as an overnight stay. Principal Diagnosis Right ankle fracture Discharge Data Allergies Allergy/AdvReac Type Severity Reaction Status Date / Time Penicillins Allergy Unknown HIVES Verified 04/29/20 16:12 Consultations 04/29/20 16:04 ED Decision to Admit Stat Procedures Performed Operation Date: 04/29/20 19:00 Actual Procedures p Open Reduction Internal Fixation Right Ankle(Right) - Roscoe Randall DO Ordered Studies 04/29/20 FL ankle RT 2V Routine FL fluoroscopy <1hr Routine 04/29/20 18:02 US - OR guided needle placemen Routine Hospital Course (1) Bimalleolar ankle fracture: On April 29, 2020 Lali sustained a right bimalleolar ankle fracture and came to the emergency room. The ankle was reduced in the ER and orthopedics was consulted to evaluate and treat. Was a very unstable ankle fracture, and after discussions at bedside, we elected to proceed with an open reduction and internal fixation of the right ankle later that evening. She then underwent an ORIF of the right ankle with out complication. She was then placed in a trauma splint and kept overnight for postoperative medical management. She was started on aspirin twice a day for DVT prophylaxis. On postop day #1 she was doing well. She was seen by physical therapy and occupational therapy and able to be compliant with a nonweightbearing instructions. She was then discharged home. She will follow-up with orthopedics in 2 weeks. Total Time Total Time Spent Total Time Spent (In Minutes): 20 Discharge Plan Discharge Items Patient Disposition: Home - Self-Care Reason For Visit: RIGHT ANKLE FRACTURE Discharge Diagnosis: Fixation of the right ankle Activity: As commented below Non-emergency contact: Surgeon Call non-emergency contact if: your wound has increased redness and your wound has increased drainage Follow-up/Referrals: Mayda Wong MD [Primary Care Provider] - Diet: Regular Addtl Attending Provider Instructions: Nonweightbearing on the right leg Keep the right leg elevated as much as possible. Keep the trauma splint clean and dry. Follow-up with Roscoe Hernandez PA-C in Dr. Randall's office in 2 weeks for staple removal. Office phone number is [phone]. Pending Studies at Discharge: No Stand-Alone Forms: My [facility] [employer], Smoking Cessation Medications and DC Order Prescriptions: New oxycodone 5 mg Tablet 5 mg PO Q4H PRN (Reason: pain) Qty: 30 RF: 0 aspirin 81 mg Tablet,Delayed Release (Dr/Ec) 81 mg PO BID 42 Days Qty: 0 RF: 0 Continued metoprolol succinate 100 mg tablet extended release 24 hr 50 mg PO Q12H 90 Days Qty: 90 RF: 3 cholecalciferol (vitamin D3) 50 mcg (2,000 unit) capsule 50 mcg PO DAILY RF: 0 vitamin B complex [Super B-50 Complex] Capsule 1 cap PO DAILY RF: 0 elham [id number] 250-40-125 mg-mg-unit Tablet 1 tab PO DAILY RF: 0 Probiotic 3 billion cell Capsule 3,000 mmu cells PO DAILY RF: 0 Discharge Orders: Discharge Order (Routine); Ordered 04/30/20 Ordered By: Roscoe Randall Admission Data Admit Date/Time: 04/29/20 16:57 Attending Provider: Roscoe Randall Admit Provider: Roscoe Randall Primary Care Provider: Mayda Wong Other Providers: Roscoe Randall Coding Level of Care Code D/C Day Management <30 mins Diagnoses Bimalleolar ankle fracture S82.843A
--- NOTE | 2020-04-30 07:58 | Fluoroscopy Report ---
FL ankle RT 2V CLINICAL HISTORY: ORIF RIGHT ANKLE COMPARISON STUDY: Right ankle 04/21/2020. FLUOROSCOPY TIME: 22 seconds. FINDINGS: 3 fluoroscopic spot images of the right ankle demonstrates internal fixation of a bimalleol ar fracture. The hardware appears intact. Alignment appears anatomic. IMPRESSION: Fluoroscopy provided for internal fixation of a bimalleolar right ankle fracture. ACT 112: Negative or not required by law. Electronically signed by: Jack Barnes M.D. 04/30/2020 7:57 AM
[2020-04-30] MEDS ORDERED: MULTIVITAMIN TAB PO SCH (09:00)
[2020-04-30] MEDS ORDERED: ASPIRIN 81 MG ECTAB PO SCH (09:00)
[2020-04-30] MEDS ORDERED: DOCUSATE SODIUM 100 MG CAP PO SCH (09:00)
[2020-04-30] MEDS ORDERED: SENNA 8.6 MG TAB PO SCH (21:00)
== END 2020-04-30 12:20 | disposition home or self-care (01) ==
LOC: ED 15:00 → 3E 16:57 → INTOOBSV 16:57 → 3E 17:22